=== PATIENT | female | born 1970 | race Caucasian/White ===

== ENCOUNTER 2023-06-11 12:37 | Outpatient (CLI) | payer BC, SELFPAY ==
--- NOTE | 2023-06-11 12:42 | XR_ITS ---
WS: [id number] DEXA (DUAL ENERGY X-RAY ABSORPTIOMETRY) Bone mineral density was performed using a [facility] machine. HISTORY: POST MENOPAUSAL COMPARISON: None available. Lumbar spine BMD (L1-L4): 1.170 g/cm2 T score: -0.1 Z score: -0.7 Total hip BMD: Left: 1.057 g/cm2. T score: 0.4 Z score: 0.1 Right: 1.023 g/cm2. T score: 0.1 Z score: -0.2 10 year probability of a major osteoporotic fracture is 3.4%. IMPRESSION: NORMAL BONE MINERAL DENSITY based upon the WHO classification for females.
== END 2023-06-11 12:38 | disposition home or self-care (01) ==
LOC: RAD 12:39
PROVIDERS: PCP Family Medicine; Visit Provider Family Medicine
DX: Z78.0 Asymptomatic menopausal state (principal)
CPT/HCPCS: 77080